=== PATIENT | female | born 1980 | race Caucasian/White ===

== ENCOUNTER 2017-08-10 17:35 | Inpatient (IN) | payer OTHER, SELFPAY ==
[2017-08-10 19:37] VITALS: BMI 41.5
[2017-08-10] MEDS: miSOPROStol 100 MCG TABLET 50 MCG VAGINAL (20:27)
[2017-08-10] MEDS: Lactated Ringers 1,000 ML 50 ML IV (21:50)
[2017-08-10 22:29] LABS: Hematocrit 34.4 % (37-47); Hemoglobin 11.7 g/dl (12.0-15.0); Mean Corpuscular Hgb 29.5 pg (27.0-32.0); Mean Corpuscular Volume 86.6 fL (81-99); Platelet Count 213 K/mm3 (150-450); RBC Distribution Width CV 13.8 % (11.6-14.6); RBC Distribution Width SD 43.8 fl (35.1-43.9); Red Blood Count 3.97 M/mm3 (4.2-5.4); Scan Indicated on CBC? Y/N NO; White Blood Count 8.6 K/mm3 (4.4-11.0)
--- NOTE | 2017-08-10 22:29 | PCM.HP.OB ---
- Problem List (1) IUFD (intrauterine ) Status: Acute (2) No care in current in second trimester Status: Acute (3) Recurrent loss in patient in second trimester, antepartum Status: Acute (4) Grand multipara Status: Acute History Date of Admission: 08/10/17 Final SVETA: 10/15/17 Gestational age: 30 Weeks and 4 Days History of this : This is a 36 year-old, G 15, P 12, at 30 weeks gestational age presents with intrauterine demise. Patient had her first visit yesterday and states she has not felt any movement possibly for the last 2 weeks. 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 She denies any vaginal bleeding or loss of fluid denies any fevers or abdominal pain. Allergies No Known Allergies Allergy (Unverified 08/10/17 18:49) Home Medications: Home Medications Vits [Prenatabs FA] 2 tablet PO DAILY 08/10/17 Smoking Status: Never smoker Alcohol: None Number of Fetus(es): 1 - Bedside ultrasound done, confirmed vertex and no heart tones or color Doppler flow seen inside the fetus. Significant oligohydramnios noted. No gross placental abnormality seen. History Past Pregnancies: Past Pregnancies 12 term vaginal deliveries at [facility]. No significant complications. 2 previous mid second trimester losses with vaginal deliveries at home and in the birthing center. One required a D&C for retained placenta. Labs: Mom's Problem List Problem Status Onset Code IUFD (intrauterine ) Acute No care in current in second trimester Acute O09.32 Recurrent loss in patient in second trimester, antepartum Acute O26.22 Grand multipara Acute Z64.1 Mom's Labs & Results 08/10/17 08/10/17 08/10/17 21:50 21:50 21:50 WBC RBC Hgb Hct MCV MCH MCHC RDW RDW Differential Plt Count MPV Kleihauer-Betke F Hgb Hemoglobin A1c Pending TSH Pending Free T4 Pending Miscellaneous Test Pending Blood Type Antibody Screen 08/10/17 08/10/17 08/10/17 21:50 21:50 21:50 WBC 8.6 RBC 3.97 L Hgb 11.7 L Hct 34.4 L MCV 86.6 MCH 29.5 MCHC 34.0 RDW 13.8 RDW Differential 43.8 Plt Count 213 MPV 10.0 Kleihauer-Betke F Hgb Pending Hemoglobin A1c TSH Free T4 Miscellaneous Test Blood Type Pending Antibody Screen Pending Course Did the patient receive No care? Labs HIV/AIDS Not done Other Lab Procedures/Results/ pt. believes she is O+ Comments: Current Obstetrical History Gestational Diabetes No Incompetent Cervix No Infertility No IUGR No Macrosomia No Hypertension/Pre-eclampsia No Placenta Previa/Abruption No PTL/PROM No Uterine anomaly No Oligohydramnios No Polyhydramnios No Multiple gestation No Past Medical History Asthma No Diabetes No Hypertension No Heart disease No Mitral valve prolapse No Neurologic/Seizure disorder/ No Migraines Kidney disease No Liver disease No Varicosities No Clotting disorders/Hx of DVT No Thyroid Dysfunction No Other medical diseases No Psychiatric disorders No Major trauma No Abnormal PAP smear No Sleep apnea No Mammogram in the last 2 years No Social History Marital Status: Alleged father Anton Hx Smoking No Smoking Status Never smoker Expected Delivery Method: Spontaneous Vaginal Number of Visits: 1 Review of Systems Constitutional: Denies: Fever, Malaise Eyes: Denies: Blurred vision, Vision Change HEENT: Denies: Head Aches, Visual Changes Cardiovascular: Denies: Chest Pain, Palpitations Respiratory: Denies: Cough, Shortness of Breath, Wheezing Gastrointestinal: Denies: Abdominal Pain, Diarrhea, Nausea, Vomiting Genitourinary: Denies: Dysuria, Hematuria Gynecological: Denies: Vaginal bleeding, Vaginal discharge Musculoskeletal: Denies: Joint Pain, Muscle pain Skin: Denies: Lesions, Rash Neurological: Denies: Blurred vision, Focal weakness, Headaches Psychiatric: Denies: Anxiety, Depression Endocrine: Denies: Heat/ Cold Intolerance Hematologic/ Lymphatic: Denies: Easy Bruising, Easy Bleeding Physical Exam General: Alert, Cooperative, No apparent distress HEENT: Atraumatic, Normocephalic. Negative for: Thyromegaly, Lymphadenopathy Cardiovascular: Regular rate Lungs: Normal air movement Abdomen: Soft, Non Tender, Gravid Neurological: Deep Tendon Reflexes 2+/4 and Symmetrical, Neuro grossly intact. 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 Negative for: Vulvar lesions Estimated gestational size: Appropriate for gestational size Presentation: Cephalic Assessment/Plan All Active Problems IUFD (intrauterine ) (Acute) No care in current in second trimester (Acute) Recurrent loss in patient in second trimester, antepartum (Acute) Grand multipara (Acute) This is a 36 year-old, G 15, P 12, at 30 weeks gestational age with intrauterine demise Discussed recommended workup and patient declining certain testing. Recommend checking CBC TSH free T4 hemoglobin A1c antiphospholipid antibody panel and Kleihauer-Betke test. Plan Cytotec induction of labor
--- NOTE | 2017-08-10 22:38 | HP.PCM_ITS ---
- Problem List (1) IUFD (intrauterine ) Status: Acute (2) No care in current in second trimester Status: Acute (3) Recurrent loss in patient in second trimester, antepartum Status: Acute (4) Grand multipara Status: Acute History Date of Admission: 08/10/17 Final SVETA: 10/15/17 Gestational age: 30 Weeks and 4 Days History of this : This is a 36 year-old, G 15, P 12, at 30 weeks gestational age presents with intrauterine demise. Patient had her first visit yesterday and states she has not felt any movement possibly for the last 2 weeks. 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 She denies any vaginal bleeding or loss of fluid denies any fevers or abdominal pain. Allergies No Known Allergies Allergy (Unverified 08/10/17 18:49) Home Medications: Home Medications Vits [Prenatabs FA] 2 tablet PO DAILY 08/10/17 Smoking Status: Never smoker Alcohol: None Number of Fetus(es): 1 - Bedside ultrasound done, confirmed vertex and no heart tones or color Doppler flow seen inside the fetus. Significant oligohydramnios noted. No gross placental abnormality seen. History Past Pregnancies: Past Pregnancies 12 term vaginal deliveries at [facility]. No significant complications. 2 previous mid second trimester losses with vaginal deliveries at home and in the birthing center. One required a D&C for retained placenta. Labs: Mom's Problem List Problem Status Onset Code IUFD (intrauterine ) Acute No care in current in second trimester Acute O09.32 Recurrent loss in patient in second trimester, antepartum Acute O26.22 Grand multipara Acute Z64.1 Mom's Labs & Results 08/10/17 08/10/17 08/10/17 21:50 21:50 21:50 WBC RBC Hgb Hct MCV MCH MCHC RDW RDW Differential Plt Count MPV Kleihauer-Betke F Hgb Hemoglobin A1c Pending TSH Pending Free T4 Pending Miscellaneous Test Pending Blood Type Antibody Screen 08/10/17 08/10/17 08/10/17 21:50 21:50 21:50 WBC 8.6 RBC 3.97 L Hgb 11.7 L Hct 34.4 L MCV 86.6 MCH 29.5 MCHC 34.0 RDW 13.8 RDW Differential 43.8 Plt Count 213 MPV 10.0 Kleihauer-Betke F Hgb Pending Hemoglobin A1c TSH Free T4 Miscellaneous Test Blood Type Pending Antibody Screen Pending Course Did the patient receive No care? Labs HIV/AIDS Not done Other Lab Procedures/Results/ pt. believes she is O+ Comments: Current Obstetrical History Gestational Diabetes No Incompetent Cervix No Infertility No IUGR No Macrosomia No Hypertension/Pre-eclampsia No Placenta Previa/Abruption No PTL/PROM No Uterine anomaly No Oligohydramnios No Polyhydramnios No Multiple gestation No Past Medical History Asthma No Diabetes No Hypertension No Heart disease No Mitral valve prolapse No Neurologic/Seizure disorder/ No Migraines Kidney disease No Liver disease No Varicosities No Clotting disorders/Hx of DVT No Thyroid Dysfunction No Other medical diseases No Psychiatric disorders No Major trauma No Abnormal PAP smear No Sleep apnea No Mammogram in the last 2 years No Social History Marital Status: Alleged father Anton Hx Smoking No Smoking Status Never smoker Expected Delivery Method: Spontaneous Vaginal Number of Visits: 1 Review of Systems Constitutional: Denies: Fever, Malaise Eyes: Denies: Blurred vision, Vision Change HEENT: Denies: Head Aches, Visual Changes Cardiovascular: Denies: Chest Pain, Palpitations Respiratory: Denies: Cough, Shortness of Breath, Wheezing Gastrointestinal: Denies: Abdominal Pain, Diarrhea, Nausea, Vomiting Genitourinary: Denies: Dysuria, Hematuria Gynecological: Denies: Vaginal bleeding, Vaginal discharge Musculoskeletal: Denies: Joint Pain, Muscle pain Skin: Denies: Lesions, Rash Neurological: Denies: Blurred vision, Focal weakness, Headaches Psychiatric: Denies: Anxiety, Depression Endocrine: Denies: Heat/ Cold Intolerance Hematologic/ Lymphatic: Denies: Easy Bruising, Easy Bleeding Physical Exam General: Alert, Cooperative, No apparent distress HEENT: Atraumatic, Normocephalic. Negative for: Thyromegaly, Lymphadenopathy Cardiovascular: Regular rate Lungs: Normal air movement Abdomen: Soft, Non Tender, Gravid Neurological: Deep Tendon Reflexes 2+/4 and Symmetrical, Neuro grossly intact. 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 Negative for: Vulvar lesions Estimated gestational size: Appropriate for gestational size Presentation: Cephalic Assessment/Plan All Active Problems IUFD (intrauterine ) (Acute) No care in current in second trimester (Acute) Recurrent loss in patient in second trimester, antepartum ( Acute) Grand multipara (Acute) This is a 36 year-old, G 15, P 12, at 30 weeks gestational age with intrauterine demise Discussed recommended workup and patient declining certain testing. Recommend checking CBC TSH free T4 hemoglobin A1c antiphospholipid antibody panel and Kleihauer-Betke test. Plan Cytotec induction of labor
[2017-08-10 22:50] LABS: Hemoglobin A1c 5.8 % (4.2-6.3)
[2017-08-10] MEDS: 0.9% Saline Lock 10 ML Syringe IV (22:50)
[2017-08-10 22:52] LABS: T4 Free Direct 0.74 ng/dL (0.76-1.46)
[2017-08-11] MEDS: miSOPROStol 100 MCG TABLET 50 MCG VAGINAL ×2 (00:40→04:35)
[2017-08-11] MEDS: Oxytocin 30 units/NS 500 ml 30 UNITS/500 ML IV.SOLN 334 UNITS IV (07:20)
[2017-08-11] MEDS: Oxytocin 30 units/NS 500 ml 30 UNITS/500 ML IV.SOLN 167 UNITS IV (07:50)
--- NOTE | 2017-08-11 08:59 | PCM.OB.VAG ---
- Problem List (1) IUFD (intrauterine ) Status: Acute (2) No care in current in second trimester Status: Acute (3) Recurrent loss in patient in second trimester, antepartum Status: Acute (4) Grand multipara Status: Acute Vaginal Delivery Maternal Presentation: Medically Indicated Induction iol iufd 30 weeks no care Medical Reason for Induction: demise Amniotic Membrane Rupture Type: Spontaneous Amniotic Fluid Description: Clear Final SVETA: 10/15/17 Gestational age: 30 Weeks and 5 Days Date of Procedure: 08/11/17 Pre-Operative Diagnosis: iol iufd Post-Operative Diagnosis: same Surgery/ Procedure Performed: Spontaneous Vaginal Delivery Type of Anesthesia: None Description of Procedure: patient delivered precipitiously into the bed, i arrived and the fetus had already delivered, cord was clamped and infant evaluated. depression of skull with good skin integirty, some swelling of abdomen with ecchymoses. nuchal cord x 2. cord cut and placenta delivered spontaneously and was intact. ebl 200. infant had no other gross abnormalities Presentation: Vertex Placental Delivery Description: Spontaneous Placenta Disposition: [facility] Cord Vessel Description: 3 Vessels Cord Entanglement: Around neck x 2, tight Estimated Blood Loss: 200 A gender: Male (1 minute): 0 (5 minute): 0 Episiotomy Description: None Laceration: None Medications given after delivery: IV Pitocin Complications: None
--- NOTE | 2017-08-11 09:04 | PCM.DCVAG ---
Discharge Diet: No Restrictions Discharge Activity: Return to Normal Activity, May not drive while taking narcotic pain medications., May Shower May resume sexual activity in: 4-6 weeks Call your doctor if your incision/area has: Continuous Slow Oozing, Sudden Increased Bleeding, Increased Pain/ Swelling, Increased Redness, Foul Smelling Discharge Additional Instructions: If you experience any of the following, contact your healthcare provider. Bleeding that soaks a pad every hour for 2 hours Fever 100.4 or higher Unrelieved incision or abdominal pain Swelling, redness, discharge or bleeding from your incision or episiotomy site Your incision begins to separate Problems urinating (including inability to urinate or burning while urinating). Visual changes Severe headache Flu-like symptoms Pain or redness in one of both of your breasts Pain, warmth, tenderness or swelling in your legs, especially the calf area Frequent nausea and vomiting Symptoms of depression or anxiety If you experience any of the following, call 911 or go to the nearest Emergency Room. Chest pain Problems breathing Seizure activity Partial or complete paralysis of a body part, slurred speech, weakness or drooping of the face, or a sudden inability to walk or hold your balance Allergies/Adverse Reactions: Allergies No Known Allergies Allergy (Unverified 08/10/17 18:49) Medications to take at Discharge Vits [Prenatabs FA] 2 tablet PO DAILY 08/10/17 Please Follow Up With: Megha Mc MD - [phone] When: Call to make an appointment with your doctor in 6 weeks. If you had elevated Blood pressure or 4th degree laceration you will need to be seen in 2 weeks. Primary Care Physician: Care Physician,No Primary [Primary Care Provider] -
--- NOTE | 2017-08-11 09:05 | DCINST_ITS ---
Discharge Diet: No Restrictions Discharge Activity: Return to Normal Activity, May not drive while taking narcotic pain medications., May Shower May resume sexual activity in: 4-6 weeks Call your doctor if your incision/area has: Continuous Slow Oozing, Sudden Increased Bleeding, Increased Pain/ Swelling, Increased Redness, Foul Smelling Discharge Additional Instructions: If you experience any of the following, contact your healthcare provider. * Bleeding that soaks a pad every hour for 2 hours * Fever 100.4 or higher * Unrelieved incision or abdominal pain * Swelling, redness, discharge or bleeding from your incision or episiotomy site * Your incision begins to separate * Problems urinating (including inability to urinate or burning while urinating) . * Visual changes * Severe headache * Flu-like symptoms * Pain or redness in one of both of your breasts * Pain, warmth, tenderness or swelling in your legs, especially the calf area * Frequent nausea and vomiting * Symptoms of depression or anxiety If you experience any of the following, call 911 or go to the nearest Emergency Room. * Chest pain * Problems breathing * Seizure activity * Partial or complete paralysis of a body part, slurred speech, weakness or drooping of the face, or a sudden inability to walk or hold your balance Allergies/Adverse Reactions: Allergies No Known Allergies Allergy (Unverified 08/10/17 18:49) Medications to take at Discharge Vits [Prenatabs FA] 2 tablet PO DAILY 08/10/17 Please Follow Up With: Megha Mc MD - [phone] When: Call to make an appointment with your doctor in 6 weeks. If you had elevated Blood pressure or 4th degree laceration you will need to be seen in 2 weeks. Primary Care Physician: Care Physician,No Primary [Primary Care Provider] -
--- NOTE | 2017-08-11 11:07 | CASEMGMT ---
Social Work Note Labor and Delivery Unit Summary: Notified by nursing staff of patient's presentation to the hospital and reason for admission. Patient, who is a 36 year old woman from the [facility], presented to hospital with a 30 week gestational loss, with a baby boy delivered on 08-10-17. Met with patient and Anton in room, introducing to self and role at hospital. Listened to patient's and Anton's thoughts and identified feelings regarding loss. Patient shared history of two previous losses, in 2nd trimester but earlier in gestation than this current loss. Patient shared that had a hard time after a loss about 4-5 years ago, but felt much better when became with twins who were delivered healthy. Twins are now 4 years old. Patient and Anton have 12 children ranging in ages from 16 years to 10 months at home. Explored support system in place and receptivity from patient as to accepting support from others at home. Both patient and Anton cried at one point, and forensic social worker just sat with family during this time. Emotional support, reflection, and encouragement offered today, trying to be sensitive to cultural norms for the [facility] in regards to loss, naming of baby and burial at home. Observations: Patient with flattened affect though affect brightened and patient smiled when talking about other children, especially about 4 year old twin daughters. Patient with intermittent eye contact, answered questions and became more talkative as time went on that forensic social worker was in the room. Anton also participated in conversation and presented as supportive to patient. Plan: Patient discharging home with baby, accompanied by Anton and hired dumpcart driver. Plan to talk with patient's parents who patient, Anton, and children live with about naming this baby. [place]. No other services requested or indicated at this time. -ALEJA Clifton, RESCUE WORKER
--- NOTE | 2017-08-11 12:26 | NURSING ---
0900 Grief Note: We spent some time together talking through the grief FMN basket and the meaning of each of the items. Hugs and Condolences given to each parent. Parents stated that it is tough to know how to grieve until talking with their parents to see how they should handle with their children and extended family members. Parents interested in having a follow up Anniversary card sent to their home in remembrance of their loss from [facility]. Parents have expressed the desire to take their baby home with them for burial following family viewing. Feet and hand prints completed and foot and hand impression molds completed as well. Parents have my card with number so they can call if any further questions or concerns or if they want to talk or cry together. We also discussed taking all the time they need for grieving and to not wolfe their feelings. Many tears shed from parents prior to discharge. Parents released through the rear door with their industrial tractor driver following discharge to return home. Sherry BARAHONA
[2017-08-12 10:22] LABS: Kleihauer-Betke Negative
== END 2017-08-11 11:15 | disposition home or self-care (01) | DRG 775 ==
PROVIDERS: Admitting Provider Obstetrics & Gynecology; Visit Provider Obstetrics & Gynecology
DX: O36.4XX0 Maternal care for intrauterine death, not applicable or unspecified (principal); O41.03X0 Oligohydramnios, third trimester, not applicable or unspecified; O26.23 Pregnancy care for patient with recurrent pregnancy loss, third trimester; O69.1XX0 Labor and delivery complicated by cord around neck, with compression, not applicable or unspecified; O62.3 Precipitate labor; Z3A.30 30 weeks gestation of pregnancy; Z37.1 Single stillbirth
CPT/HCPCS: 76815; 83036; 84439; 84443; 85027; 85460; 86850; 86900; 99218; J7120; A4216; G0378

== ENCOUNTER → 2018-01-12 09:14 | Outpatient (CLI) | payer SELFPAY ==
--- NOTE | 2018-01-12 09:20 | US_ITS ---
STUDY: FIRST TRIMESTER OBSTETRICAL ULTRASOUND REASON FOR EXAM: Female, 37 years old. dating. LMP: October 19, 2017. TECHNIQUE: Transabdominal TECHNICAL QUALITY: Adequate. PRIOR ULTRASOUND: None. FINDINGS: There is visualization of a single gestational sac in a normal intrauterine position. The mean sac diameter (MSD) measures 4.36 on the, indicating an estimated gestational age (EGA) of 10 weeks, 1 days. The gestational sac shape is within normal limits. There is a visualized yolk sac. The yolk sac measures 6.2 mm. The placenta is non-visualized. There is visualization of a live embryo. The crown-rump length (CRL) measures 3.8 cm, indicating an estimated gestational age (EGA) of 10 weeks, 5 days. There is demonstrated cardiac activity with a heart rate of 174 bpm. The estimated gestation age (EGA) by LMP is 12 weeks, 1 days. The estimated date of delivery (SVETA) by LMP is July 26, 2018. The estimated gestation age (EGA) by US is 10 weeks, 3 days. The estimated date of delivery (SVETA) by US is August 07, 2018. The uterus measures 16.2 cm x 10.2 cm x 5.9 cm. There is no demonstrated uterine fibroid. The cervix is closed. The the cervix measures 4 cm in length. The right ovary measures 2.5 cm x 2.4 cm x 1.8 cm. There is no right ovarian cyst. There is no visualized right adnexal mass or complex lesion. The left ovary measures 1.6 cm x 1.4 cm x 1.2 cm. There is no left ovarian cyst. There is no visualized left adnexal mass or complex lesion. There is no fluid in the cul de sac. US/Init OB < 14Wks US IMPRESSION: Single live intrauterine gestation with a mean gestational age of 10 weeks and 3 days. Electronically Signed: Lamont Clinton MD at 10:11 EST Tel [phone], Service support ,
== END ==
PROVIDERS: Visit Provider Nurse Practitioner Women's Health
DX: R76.0 Raised antibody titer (principal)
CPT/HCPCS: 76801